=== PATIENT | female | born 1940 | race Caucasian/White ===

== ENCOUNTER 2016-11-22 07:45 | Outpatient (RCR) | payer OTHER | END 2016-12-02 | disposition home or self-care (01) | LOC: PTY 07:45 | DX: M75.102 Unspecified rotator cuff tear or rupture of left shoulder, not specified as traumatic (principal) ==

== ENCOUNTER 2016-12-10 08:30 | Outpatient (RCR) | payer OTHER | END 2017-01-02 | disposition home or self-care (01) | LOC: PTY 08:30 | DX: M75.102 Unspecified rotator cuff tear or rupture of left shoulder, not specified as traumatic (principal) ==

== ENCOUNTER 2017-05-27 08:00 | Outpatient (RCR) | payer OTHER | END 2017-06-04 | disposition home or self-care (01) | LOC: PTY 08:00 | DX: R26.9 Unspecified abnormalities of gait and mobility (principal); Z91.81 History of falling ==

== ENCOUNTER 2017-06-10 08:06 | Outpatient (RCR) | payer OTHER | END 2017-07-02 | disposition home or self-care (01) | LOC: PTY 08:06 | DX: R29.6 Repeated falls (principal); R26.9 Unspecified abnormalities of gait and mobility; Z91.81 History of falling ==

== ENCOUNTER 2017-07-29 08:00 | Outpatient (RCR) | payer OTHER | END 2017-08-02 | disposition home or self-care (01) | LOC: PTY 08:00 | DX: M25.561 Pain in right knee (principal); R26.9 Unspecified abnormalities of gait and mobility; Z91.81 History of falling; Z96.651 Presence of right artificial knee joint ==

== ENCOUNTER 2017-08-05 07:50 | Outpatient (RCR) | payer OTHER | END 2017-09-01 | disposition home or self-care (01) | LOC: PTY 07:50 | DX: R29.6 Repeated falls (principal); M25.561 Pain in right knee; Z96.651 Presence of right artificial knee joint; R42 Dizziness and giddiness ==